=== PATIENT | male | born 1970 | race African-American/Black ===

== ENCOUNTER → 2021-02-05 06:37 | Outpatient (CLI) | payer OTHER, SELFPAY ==
--- NOTE | 2021-02-05 | DI.MRI.S_ITS ---
PROCEDURE: MR LOWER LEG LT WO/W CON INDICATIONS: Pain in left lower leg TECHNIQUE: Noncontrast coronal T1 spin echo and STIR, sagittal T1 spin echo with fat saturation and STIR, axial T1 spin echo and T2 fast spin echo with fat saturation. After the administration of contrast, axial/sagittal/coronal T1 spin echo with fat saturation through the tibia/fibula . COMPARISON: None. FINDINGS: Image quality: Suboptimal secondary to surgical fixation hardware involving the tibia. Bones: The visualized bone marrow demonstrates normal signal on all sequences. The overlying cortex appears intact. No abnormal intraosseous enhancement. Soft tissues: No soft tissue masses are visualized. The scanned muscles demonstrate normal overall bulk and internal signal. Subcutaneous tissues appear normal as well. No abnormal soft tissue enhancement. IMPRESSION: Overall, unremarkable MR appearance, with postsurgical changes from internal fixation of the tibia. Consider further assessment with radiographs. Dictated by: Michael Lester M.D. on 02/05/2021 at 9:51 Approved by: Michael Lester M.D. on 02/05/2021 at 10:02
== END ==
PROVIDERS: Referring Provider Orthopaedic Surgery; Visit Provider Orthopaedic Surgery
DX: M79.662 Pain in left lower leg (principal)
CPT/HCPCS: 73720